=== PATIENT | male | born 1990 | race African-American/Black ===

== ENCOUNTER 2016-08-31 20:28 | Emergency (ER) | payer OTHER ==
[~2016-08-31 20:28] MED LIST: *UNABLE3; ALEVE220 MG PO; ASA5GR PO; CHOLESTEROL TAB; DSS PO; LIPITOR80 MG PO; NICOTINE PATCH TOP; NORV5 PO; P20 PO; PRIN10 PO
[2016-08-31 20:56] LABS: BASOPHILS 0.4 %; BASOPHILS ABSOLUTE 0.05 10/3/uL (0.0-0.16); EOSINOPHILS 1.9 %; EOSINOPHILS ABSOLUTE 0.24 10/3/uL (0.0-0.53); HEMATOCRIT 41.5 % (40.0-51.0); HEMOGLOBIN 15.1 g/dL (13.6-17.8); IMMATURE GRANULOCYTES 0.2 %; IMMATURE GRANULOCYTES ABSOLUTE 0.03 10/3/uL (0.0-0.11); LYMPHOCYTES 34.3 %; LYMPHOCYTES ABSOLUTE 4.22 10/3/uL (0.67-4.30); MEAN CORPUS HGB CONC 36.4 g/dL (32.0-36.0); MEAN CORPUSCULAR HEMOGLOB 28.1 pg (26.0-34.0); MEAN CORPUSCULAR VOLUME 77.3 fL (80-100); MEAN PLATELET VOLUME 9.8 fL (9.2-13.0); MONOCYTES ABSOLUTE 1.36 10/3/uL (0.21-1.20); NEUTROPHILS 52.2 %; NEUTROPHILS ABSOLUTE 6.42 10/3/uL (2.02-8.40); PLATELET COUNT 256 10/3/uL (150-400); RED CELL COUNT 5.37 10/6/uL (4.7-6.1)
[2016-08-31 20:58] LABS: ER CBC TAT 0 Hrs 07 Mins; MANUAL DIFF NO %; WHITE BLOOD CELLS 12.3 10/3/uL (4.5-10.5)
[2016-08-31 21:03] LABS: INTERNATIONAL NORMAL RATI 1.1 UNITS (-); PARTIAL THROMBO TIME 25.8 SEC (22.5-37.2); PROTIME (NOT ORD) 13.7 SEC (12.0-14.5)
[2016-08-31 21:18] LABS: BUN (BLOOD UREA NITROGEN) 8 MG/DL (6-23); CHEST PAIN PROFILE TAT 0 Hrs 27 Mins; CHLORIDE, SERUM 107 MMOL/L (96-112); CO2 (CARBON DIOXIDE) 30 MMOL/L (24-34); CREATININE 1.02 MG/DL (0.70-1.30); GFR AFRICAN AMERICAN 115 ML/MIN (>=60); GFR NON AFRICAN AMERICAN 100 ML/MIN (>=60); GLUCOSE, SERUM 89 MG/DL (60-99); SODIUM, SERUM 144 MMOL/L (135-148); TROPONIN I <0.02 NG/ML (<0.05)
== END 2016-08-31 22:05 | disposition home or self-care (01) ==
LOC: ER 20:28
PROVIDERS: Nurse Practitioner
DX: M25.552 Pain in left hip (principal); I10 Essential (primary) hypertension; Z86.73 Personal history of transient ischemic attack (TIA), and cerebral infarction without residual deficits; F17.200 Nicotine dependence, unspecified, uncomplicated; Z79.82 Long term (current) use of aspirin; Z79.899 Other long term (current) drug therapy
CPT/HCPCS: 71020; 72170; 73502-LT; 80048; 83735; 84484; 85025; 85610; 85730; 93005; 99284; A9270-GY

== ENCOUNTER 2017-01-08 19:39 | Inpatient (IN) | payer OTHER ==
--- NOTE | ~2017-01-08 | CN ---
Consultation Report [address] [place]. [address] NAME: KIRSTEN TONG : 86 STATUS : ADM Tor PAT#: [id number] AGE: 26 ADM/REG DATE : 01/08/17 MR#: [id number] REPORT SERV DATE: 01/11/17 DICTATED BY: SHIRLEY MATHUR DATE: 01/11/17 REPORT STATUS : Draft TRANSCRIBED BY: MODL DATE: 01/11/17 NEUROLOGY CONSULTATION DATE OF CONSULTATION: 01/11/2017 REASON FOR CONSULTATION: Acute stroke and history of MS. PCP: None. HOSPITALIST: Dr. Ike Mcpherson and Luis Alegre, nurse practitioner. HISTORY OF PRESENT ILLNESS: The patient is a 26-year-old male who over the last few days has had a sudden onset of slurred speech and mild expressive aphasia. Upon further questioning, he has also been incontinent of urine and has had extreme fatigue. The patient stated that he did not want to come into the hospital right away thinking that these symptoms would resolve. They did not resolve, so he came to the hospital for further evaluation and treatment. The patient has had stroke before in the past and also has history of polysubstance abuse. He also has a history of demyelinating disease. States that he was diagnosed with multiple sclerosis two years ago. He does not follow up with a neurologist on an outpatient basis nor has he been placed on immunosuppressant therapy. When questioned more extensively, the patient mentions that he does use recreational drugs. He smokes marijuana on a daily basis and used Ecstasy last week. He denies the use of cocaine or crack. PAST MEDICAL HISTORY: Reported multiple sclerosis, polysubstance abuse, stroke, morbid obesity, hypertension, patent foramina ovale, tobacco abuse, and osteomyelitis of the right index finger. PAST SURGICAL HISTORY: Right index finger amputation. HOME MEDICATIONS: None. ALLERGIES: NONE. SOCIAL HISTORY: The patient is single. He lives alone. He has three children. He does not work. He is a smoker. He uses marijuana on a daily basis. He has some recreational drugs and denies the use of alcohol. FAMILY HISTORY: The patient's mother is alive. She is 40, has no health issues. His father is 43 and is in jail. He has two sisters and three brothers, who are in relatively good Consultation Report [facility] [address] [place]. [address] NAME: KIRSTEN TONG : 86 STATUS : ADM Tor PAT#: [id number] AGE: 26 ADM/REG DATE : 01/08/17 MR#: [id number] REPORT SERV DATE: 01/11/17 DICTATED BY: SHIRLEY MATHUR DATE: 01/11/17 REPORT STATUS : Draft TRANSCRIBED BY: MODL DATE: 01/11/17 health. REVIEW OF SYSTEMS: Please refer to HPI for pertinent positives. PHYSICAL EXAMINATION: GENERAL: The patient is a 26-year-old male who stands 6 feet 4 inches tall and weighs 261 pounds. VITAL SIGNS: He is afebrile. Heart rate 80, respiratory rate 20, O2 saturations on room air 97%, blood pressure 170/103. NEURO: The patient is alert. He is oriented x4. Communicates appropriately, although he is slightly dysarthric. He does have mild expressive aphasia. Pupils are 3 mm, PERRLA. Vision via confrontation is full in both arambula. The patient does have significant facial droop on the right along with right tongue deviation and slight ptosis on the right. He does not report diminished sensation on the face. He can move all extremities x4. He does have a pronator drift on the right. Mwveki-lb-fzcl reveals ataxia bilaterally, more prominent on the left than the right. The patient does have weakness in the right arm which is 3/5 compared to the left arm which is 5/5. Upper DTRs are 1+ on the right, 2+ on the left. No reported sensory deficits. Lower extremity strength is 4/5 on the right and 5/5 on the left. Patellar reflexes 2+ bilaterally. Downgoing toes. No reported sensory deficits. The patient can get out of the bed with some difficulty. He is ataxic. Circumduction noted with the right hip. Unable to tandem. Romberg is positive. NECK: No carotid bruits, JVD, or thyromegaly. CHEST: Lung sounds are clear. CARDIAC: Regular rate and rhythm. LABORATORY: CTA of the chest is negative for PE. MRA of the head and neck negative for stenosis or acute abnormalities. MRI of the brain, acute ischemic infarct in the left occipital lobe and anterior adeline. There are multiple demyelinating plaques. CBC: White count is 12.8. BMP is normal. NIH stroke scale is a total of 7. ASSESSMENT/PLAN: 1. Probable acute stroke, however, the lesion in the adeline is suspicious looking, therefore the patient will undergo an MRI of the brain and C-spine with gadolinium. He will also have an LP under fluoroscopy per Interventional Radiology tomorrow morning. His Lovenox will be held. Additional lab work will be drawn. Cardiology will be consulted for possible transesophageal echocardiogram. PT, OT, and Speech Therapy will be consulted, and Case Management will be consulted for rehab. His aspirin and Lipitor will be continued and after his lumbar puncture, he will be started on anticoagulation (Coumadin versus NOAC). 2. Demyelinating disease, most likely multiple sclerosis. The patient will see a neurologist on an outpatient basis for immunomodulatory therapy and followup. 3. Leukocytosis, etiology unknown. Lab work will be drawn, and the patient will be followed per hospitalist team. Consultation Report [address] [address] NAME: KIRSTEN TONG : 88 STATUS : ADM Tor PAT#: [id number] AGE: 26 ADM/REG DATE : 01/08/17 MR#: [id number] REPORT SERV DATE: 01/11/17 DICTATED BY: SHIRLEY MATHUR DATE: 01/11/17 REPORT STATUS : Draft TRANSCRIBED BY: BREEZY DATE: 01/11/17 Thank you again for including us in consultation. We will follow with you. KARSON/BREEZY Shirley Mathur DNP, [facility] / [id number] CC: Dusty Vasquez APN
--- NOTE | ~2017-01-08 | HP ---
History And Physical [place] [id number] [facility] [place]. [address] NAME: KIRSTEN TONG : 86 STATUS : ADM Tor PAT#: [id number] AGE: 26 ADM/REG DATE : 01/08/17 MR#: [id number] REPORT SERV DATE: 01/09/17 DICTATED BY: PRABHA NESS DATE: 01/08/17 REPORT STATUS : Draft TRANSCRIBED BY: MODHaim DATE: 01/08/17 DATE OF ADMISSION: 01/08/2017 POINT OF ENTRY: [facility] Emergency Department PRIMARY CARE PHYSICIAN: None at this time. NEUROLOGIST: None at this time. CHIEF COMPLAINT: Slurred speech. HISTORY OF PRESENT ILLNESS: Mr. Tong is a 26-year-old gentleman with a history of prior cerebrovascular accident with history of left-sided hemiparesis as well as evidence of multiple demyelinating plaques concerning for multiple sclerosis as well as polysubstance abuse who presents here today with a two-day history of slurred speech. The patient had an extensive hospitalization in the late 2013 or early 2014 for concerns for stroke-like symptoms. The patient saw both Neurology as well as Infectious Diseases. An MRI with and without contrast totally showed extensive burden of demyelinating plaques in both cerebral hemispheres concerning for possible multiple sclerosis. The patient was discharged on a prednisone taper as well as medications for his high blood pressure. The patient denies any other recent hospitalization since discharge from our facility in August 2014. The patient states for the last two days he has had slurred speech. He denies any headache, vision changes, dysphagia, weakness, numbness, or tingling. He is unable to tell me exactly why it took him so long to be seen by the medical professional. He currently denies any use of medications for his multiple sclerosis or demyelinating plaques. Initial evaluation in the emergency department notable for a CT scan of the brain that shows improved burden of demyelinating white matter plaques. EKG was nonischemic. Labs unremarkable. Urine drug screen was positive for amphetamines and cannabinoids. The patient was noted to be leaving the ER multiple times to go outside and smoke. He has since been warned that if this does happens again either here in the ER or on the floor, he will be discharged. REVIEW OF SYSTEMS: Comprehensive review of systems, otherwise negative unless listed in history of present illness. PAST MEDICAL HISTORY: 1. Demyelinating disease, concerning for multiple sclerosis. 2. Polysubstance abuse. 3. History of cerebrovascular accident with left-sided hemiparesis. 4. Morbid obesity. History And Physical [address] [address] NAME: KIRSTEN TONG : 86 STATUS : ADM Tor PAT#: [id number] AGE: 26 ADM/REG DATE : 01/08/17 MR#: [id number] REPORT SERV DATE: 01/09/17 DICTATED BY: PRABHA NESS DATE: 01/08/17 REPORT STATUS : Draft TRANSCRIBED BY: BREEZY DATE: 01/08/17 5. Hypertension. 6. History of right index finger osteomyelitis, status post surgery. 7. Reported history of PFO. SURGICAL HISTORY: Right finger distal resection for osteomyelitis. ALLERGIES: NO KNOWN DRUG ALLERGIES. HOME MEDICATIONS: None. SOCIAL HISTORY: Smokes about two packs per day. Denies any alcohol. Endorses some marijuana use. Nothing else. FAMILY HISTORY: Family medical history of hypertension, asthma. LABS AND IMAGIN. White count is 11.3, hemoglobin is 15.5 hematocrit is 42.7, platelets 242. INR 1.1. 2. Sodium is 142, potassium 3.8, chloride 106, carbon dioxide 34, BUN 10, creatinine 0.98, glucose is 64, calcium is 9.3. Protein is 7.1, albumin is 3.9, bilirubin is 0.4, ALT is 20, AST is 13, alkaline phosphatase is 80. 3. Troponin less than 0.02. 4. Alcohol level is negative. Urine drug screen positive for amphetamines and cannabinoids. 5. EKG per my review shows a normal sinus rhythm with some occasional PVCs and some borderline LVH type changes. No evidence of any acute ischemic infarction. 6. Chest x-ray per review shows no acute cardiopulmonary abnormality. 7. CT scan of the brain showed a decreased burn in the deep white matter plaques as well as a stable, but extensive bilateral demyelinating plaques. PHYSICAL EXAMINATION: VITAL SIGNS: Temperature is 98.4 degrees Fahrenheit, pulse is 79, respirations 20, saturating 98% on room air, blood pressure 160/95. GENERAL: The patient is awake, alert, in no acute distress, resting comfortably in a bed. He is a well-developed, well-nourished, male. HEENT: Atraumatic and normocephalic. Moist mucous membranes. Pupils are equal, round, and reactive to light and accommodation. Extraocular eye movements intact. No scleral icterus. NECK: No jugular venous distention. No carotid bruits. CARDIAC: Regular rate and rhythm. No murmurs, rubs, or gallops. Normal S1, S2. LUNGS: Clear to auscultation bilaterally. No wheezes, rhonchi, or crackles. ABDOMEN: Soft, nontender, nondistended with good bowel sounds. No rebound, guarding, or rigidity. EXTREMITIES: Warm and perfused. No cyanosis, clubbing, or edema. SKIN: Warm and dry. PSYCH: Affect is appropriate. NEURO: Alert and oriented x3. Cranial nerves II through XII are grossly intact. Speech is somewhat dysarthric, but I have no baseline for comparison. Gait is somewhat antalgic, but intact. Strength is 5/5 in bilateral upper and lower extremities. Cerebellar function is History And Physical [address] [address] NAME: KIRSTEN TONG : 86 STATUS : ADM Tor PAT#: [id number] AGE: 26 ADM/REG DATE : 01/08/17 MR#: [id number] REPORT SERV DATE: 01/09/17 DICTATED BY: PRABHA NESS DATE: 01/08/17 REPORT STATUS : Draft TRANSCRIBED BY: BREEZY DATE: 01/08/17 also intact. ASSESSMENT AND PLAN: Mr. Tong 26-year-old gentleman with a history of prior cerebrovascular accident as well as a known history of demyelinating disease concerning for multiple sclerosis who presents with a two-day history of slurred speech concerning for possible acute cerebrovascular accident versus sequela of his demyelinating disease versus possible effects of polysubstance abuse. Problem list: 1. Dysarthria. Concerning for possible cerebrovascular accident versus alternative etiology. 2. Demyelinating disease. 3. Polysubstance abuse. 4. Active tobacco abuse. 5. Hypertension. PLAN: 1. Dysarthria, concerning for possible cerebrovascular accident. We will admit the patient to Hospitalist Service. Consult Neurology for assistance. Check MRI stroke protocol. Place him on aspirin as well as a statin. 2. Demyelinating disease. It is unclear as to whether or not the patient's symptoms may represent sequela of demyelinating disease. ER physician called Neurology and spoke with Dr. Walker, and he recommended holding off on steroids given the patient's history of polysubstance abuse as well as unclear history at this time. 3. Polysubstance abuse. The patient currently admits to use of marijuana, but denies anything else. His urine drug screen is positive for amphetamines. Previously, he did test positive for cocaine as well as admit to other medical providers during his previous admission that he also smokes cigarettes dipped in embalming fluid. 4. Hypertension. IV hydralazine p.r.n. for elevated blood pressure. 5. Active tobacco use. Counseling of tobacco cessation. The patient was instructed not to leave the floor again to smoke and nicotine replacement protocol. 6. Deep venous thrombosis prophylaxis. Lovenox subcu. CODE STATUS: The patient wishes to be full code. JCB/MODL Prabha Ness MD / [id number] CC: Vincent Chavez M.D.
--- NOTE | ~2017-01-08 | PUL ---
[facility] [address] [facility] [place]. [address] NAME: KIRSTEN TONG : 86 STATUS : ADM Tor PAT#: [id number] AGE: 26 ADM/REG DATE : 01/08/17 MR#: [id number] REPORT SERV DATE: 01/12/17 DICTATED BY: LEWIS MONK IV DATE: 01/12/17 REPORT STATUS : Draft TRANSCRIBED BY: MODL DATE: 01/12/17 PULMONARY FUNCTION TEST OVERNIGHT OXIMETRY FINDINGS: Study is performed on room air. Five hours and 27 minutes of data are available for review. The mean oxygen saturation was 97.3%. Lowest scored saturation was 85%. There were periods of oxygen saturation variation of sawtooth pattern, though these were relatively isolated events and may be secondary to motion artifact. It was during these episodes where the patient had the significant desaturations. The patient spent 12 seconds with oxygen saturations less than 88%. IMPRESSION: No significant nocturnal hypoxemia on room air. I see no clear pattern consistent with obstructive sleep apnea despite a recorded desaturation index of 10 per hour. MICHAEL/BREEZY Lewis Monk IV, M.D. / [id number] CC: Ike Mcpherson M.D. NO PCP
--- NOTE | ~2017-01-08 | DS ---
Discharge Summary [facility] [address] [place]. [address] NAME: KIRSTEN TONG : 86 STATUS : DIS IN PAT#: [id number] AGE: 26 ADM/REG DATE : 01/08/17 MR#: [id number] REPORT SERV DATE: 01/16/17 DICTATED BY: MORGAN SARGENT DATE: 01/15/17 REPORT STATUS : Draft TRANSCRIBED BY: MODL DATE: 01/15/17 ADMISSION DATE: 01/08/2017 DISCHARGE DATE: 01/14/2017 REASON FOR ADMISSION: This is a 26-year-old male with a prior history of suspected cerebrovascular accident and left hemiparesis with multiple sclerosis, who came in with a chief complaint of slurred speech. DISCHARGE DIAGNOSES: 1. Multiple sclerosis exacerbation. 2. Possible viral meningitis. 3. Leukocytosis. 4. Polysubstance drug abuse with UDS positive for amphetamines and cannabinoids. 5. History of multiple sexually transmitted diseases. 6. Tobacco abuse. 7. Hypertension. HOSPITAL COURSE: 1. MS exacerbation. The patient admitted and had a CT scan in the emergency room, which would show apparent decreased deep white matter demyelinating plaque burden right superior frontal lobe compared to cranial CT in November 2014. He would then have a followup MRI, which would show acute ischemic infarct left occipital lobe inferior adeline and extensive deep white matter demyelinating disease, with slightly enlarging confluent demyelinating plaque in the right parietal lobe. Neuro was consulted after this finding. They would then order an MRA of head and neck, which would show unremarkable intracranial MRA. MRA of the neck would be unremarkable as well. MRI of cervical spine would show evidence for demyelinating plaques at several levels in the vertebral body including C2 and C3 lesions consistent with MS. MRI of brain with contrast would show acute process in midbrain. Given presentation suggests fairly aggressive MS in the past and findings likely all related to MS. The patient would have a spinal tap and did have oligoclonal banding. Extensive workup for viral meningitis was performed. VDRL-CSF was nonreactive. HIV was nonreactive. Hepatitis was nonreactive. HSV-1 and 2 not detected and RPR also negative. The patient complained of penile drainage, but chlamydia and gonorrhea not detected. The patient did have serum leukocytosis during his stay with white blood cell count ranging from 11.7 to 13.3 during stay, it was 12.0 before discharge. His procalcitonin was negative, with it being less than 0.05 and he did not run any fevers while here at the hospital. His speech issues which he came in with did improve during hospital stay. He also had some generalized weakness, which also improved. The patient when diagnosed with MS two years ago did not follow up with Neuro and had never been started on disease modifying medication. Neuro during this stay felt like they did not want to start the patient on steroids because the patient was functional, and with possible viral meningitis, did not want to start steroids. 2. Hypertension. The patient did have elevated blood pressures during his stay. He was started on hydrochlorothiazide and lisinopril and will be discharged on Norvasc and lisinopril. Discharge Summary [address] [address] NAME: KIRSTEN TONG : 86 STATUS : DIS IN PAT#: [id number] AGE: 26 ADM/REG DATE : 01/08/17 MR#: [id number] REPORT SERV DATE: 01/16/17 DICTATED BY: MORGAN SARGENT DATE: 01/15/17 REPORT STATUS : Draft TRANSCRIBED BY: BREEZY DATE: 01/15/17 DISCHARGE CONDITION: Stable. DISCHARGE MEDICATIONS: 1. Norvasc 5 mg p.o. daily. 2. Lisinopril 20 mg p.o. daily. 3. Vitamin D 50,000 units p.o. weekly. DISCHARGE PLAN: The patient does have [facility]. He wishes to establish a new primary care physician, so he was given information on how to do that. Also, he was to follow up with Neuro, was unable to secure an appointment sooner than June, so he will likely need to be referred to another Neuro Office to get seen sooner to get started on disease modifying medication. The working diagnosis here is that he had an MS exacerbation brought on by viral meningitis. He should follow up with primary care in the next one to two weeks. If he is unable to secure a primary care visit soon and/or Neuro and has worsening symptoms, he was advised to come back into the emergency room. DICTATED BY: LARRY Bryant/BREEZY Morgan Sargent APN / [id number] CC: Dusty Vasquez, [facility]-
[2017-01-08 16:53] LABS: BASOPHILS 0.6 %; BASOPHILS ABSOLUTE 0.07 10/3/uL (0.0-0.16); EOSINOPHILS 1.6 %; EOSINOPHILS ABSOLUTE 0.18 10/3/uL (0.0-0.53); ER CBC TAT 0 Hrs 08 Mins; HEMATOCRIT 42.7 % (40.0-51.0); HEMOGLOBIN 15.5 g/dL (13.6-17.8); IMMATURE GRANULOCYTES 0.2 %; IMMATURE GRANULOCYTES ABSOLUTE 0.02 10/3/uL (0.0-0.11); LYMPHOCYTES 29.5 %; LYMPHOCYTES ABSOLUTE 3.34 10/3/uL (0.67-4.30); MEAN CORPUS HGB CONC 36.3 g/dL (32.0-36.0); MEAN CORPUSCULAR HEMOGLOB 28.2 pg (26.0-34.0); MEAN CORPUSCULAR VOLUME 77.8 fL (80-100); MONOCYTES ABSOLUTE 1.13 10/3/uL (0.21-1.20); NEUTROPHILS 58.1 %; PLATELET COUNT 242 10/3/uL (150-400); RBC DISTRIBUTION WIDTH 14.7 % (12.0-16.0); RED CELL COUNT 5.49 10/6/uL (4.7-6.1); WHITE BLOOD CELLS 11.3 10/3/uL (4.5-10.5)
[2017-01-08 16:54] LABS: MANUAL DIFF NO %
[2017-01-08 17:00] LABS: INTERNATIONAL NORMAL RATI 1.1 UNITS (-); PARTIAL THROMBO TIME 27.4 SEC (22.5-37.2)
[2017-01-08 17:11] LABS: A/G RATIO 1.2 (0.7-1.9); ALBUMIN 3.9 G/DL (3.5-5.0); ALKALINE PHOSPHATASE 80 U/L (45-117); BUN (BLOOD UREA NITROGEN) 10 MG/DL (6-23); CALCIUM, SERUM 9.3 MG/DL (8.5-10.4); CHLORIDE, SERUM 106 MMOL/L (96-112); CO2 (CARBON DIOXIDE) 34 MMOL/L (24-34); CREATININE 0.98 MG/DL (0.70-1.30); GFR AFRICAN AMERICAN 121 ML/MIN (>=60); GFR NON AFRICAN AMERICAN 105 ML/MIN (>=60); GLOBULIN 3.2 G/DL (2.5-4.1); GLUCOSE, SERUM 64 MG/DL (60-99); POTASSIUM, SERUM 3.8 MMOL/L (3.5-5.3); SGOT(AST) 13 U/L (5-40); SGPT(ALT) 20 U/L (5-65); SODIUM, SERUM 142 MMOL/L (135-148); TOTAL BILIRUBIN 0.4 MG/DL (0-1.2); TOTAL PROTEIN 7.1 G/DL (6.0-8.5); TROPONIN I <0.02 NG/ML (<0.05)
[2017-01-08 20:48] LABS: ALCOHOL < 10 MG/DL (0)
[2017-01-08 22:37] LABS: AMPHETAMINES (NOT ORD) POS (NEG); BARBITURATES (NOT ORDERED NEG (NEG); BENZODIAZEPINES (NOT ORD) NEG (NEG); CANNABINOIDS (THC) POS (NEG); COCAINE (NOT ORDERED) NEG (NEG); OPIATES NEG (NEG); PHENCYCLIDINE(PCP) NEG (NEG); TRICYCLICS NEG (NEG)
[2017-01-09 01:37] LABS: ASCORBIC ACID (UR NOT ORDER) NEG (NEG); BILIRUBIN, URINE NEGATIVE (NEG); KETONE, URINE NEGATIVE (NEG); LEUKOCYTE ESTERASE(NOT OR NEG (NEG); WBC (NOT ORDERED) (RFLEX) < 1 (0-5)
[2017-01-09 02:19] LABS: CHOL/HDL RATIO(NOT ORDER) 1.9 (0-5); CHOLESTEROL 97 MG/DL (< 200); CPK (IF ELEVATED MB BANDS) 210 U/L (0-200); FOLATE 8.4 NG/ML (>5.2); FREE T4 1.18 NG/DL (0.76-1.46); HDL CHOLESTEROL 52 MG/DL (> 39); LDL CHOLESTEROL 34 MG/DL (< 130); NON-HDL CHOLESTEROL 45 MG/DL (< 160); TRIGLYCERIDE 57 MG/DL (< 150); TROPONIN I <0.02 NG/ML (<0.05)
[2017-01-09 02:32] LABS: CK-MB 1.2 NG/ML
[2017-01-09 09:37] LABS: CPK (IF ELEVATED MB BANDS) 166 U/L (0-200); TROPONIN I <0.02 NG/ML (<0.05)
[2017-01-10 21:55] LABS: BASOPHILS 0.4 %; BASOPHILS ABSOLUTE 0.05 10/3/uL (0.0-0.16); EOSINOPHILS 0.4 %; EOSINOPHILS ABSOLUTE 0.05 10/3/uL (0.0-0.53); HEMOGLOBIN 17.6 g/dL (13.6-17.8); IMMATURE GRANULOCYTES 0.3 %; IMMATURE GRANULOCYTES ABSOLUTE 0.03 10/3/uL (0.0-0.11); LYMPHOCYTES 20.3 %; LYMPHOCYTES ABSOLUTE 2.42 10/3/uL (0.67-4.30); MEAN CORPUS HGB CONC 36.1 g/dL (32.0-36.0); MEAN CORPUSCULAR HEMOGLOB 27.9 pg (26.0-34.0); MEAN CORPUSCULAR VOLUME 77.3 fL (80-100); MEAN PLATELET VOLUME 10.5 fL (9.2-13.0); MONOCYTES 6.5 %; MONOCYTES ABSOLUTE 0.78 10/3/uL (0.21-1.20); NEUTROPHILS 72.1 %; NEUTROPHILS ABSOLUTE 8.61 10/3/uL (2.02-8.40); PLATELET COUNT 253 10/3/uL (150-400); RBC DISTRIBUTION WIDTH 14.4 % (12.0-16.0); WHITE BLOOD CELLS 11.9 10/3/uL (4.5-10.5)
[2017-01-10 21:56] LABS: HEMATOCRIT 48.7 % (40.0-51.0); MANUAL DIFF NO %
[2017-01-10 22:09] LABS: BUN (BLOOD UREA NITROGEN) 9 MG/DL (6-23); CALCIUM, SERUM 9.7 MG/DL (8.5-10.4); CHLORIDE, SERUM 104 MMOL/L (96-112); CO2 (CARBON DIOXIDE) 30 MMOL/L (24-34); CREATININE 0.82 MG/DL (0.70-1.30); GFR AFRICAN AMERICAN 139 ML/MIN (>=60); GFR NON AFRICAN AMERICAN 120 ML/MIN (>=60); PHOSPHORUS, SERUM 3.2 MG/DL (2.5-4.5); POTASSIUM, SERUM 3.4 MMOL/L (3.5-5.3); SODIUM, SERUM 140 MMOL/L (135-148); TROPONIN I <0.02 NG/ML (<0.05)
[2017-01-10 22:13] LABS: GLUCOSE, SERUM 80 MG/DL (60-99)
[2017-01-11 13:53] LABS: BASOPHILS 0.5 %; BASOPHILS ABSOLUTE 0.06 10/3/uL (0.0-0.16); EOSINOPHILS 0.6 %; EOSINOPHILS ABSOLUTE 0.08 10/3/uL (0.0-0.53); HEMATOCRIT 47.1 % (40.0-51.0); HEMOGLOBIN 17.2 g/dL (13.6-17.8); IMMATURE GRANULOCYTES 0.4 %; IMMATURE GRANULOCYTES ABSOLUTE 0.05 10/3/uL (0.0-0.11); LYMPHOCYTES ABSOLUTE 2.93 10/3/uL (0.67-4.30); MANUAL DIFF NO %; MEAN CORPUS HGB CONC 36.5 g/dL (32.0-36.0); MEAN CORPUSCULAR HEMOGLOB 28.2 pg (26.0-34.0); MEAN CORPUSCULAR VOLUME 77.1 fL (80-100); MEAN PLATELET VOLUME 9.8 fL (9.2-13.0); MONOCYTES 9.8 %; MONOCYTES ABSOLUTE 1.25 10/3/uL (0.21-1.20); NEUTROPHILS 65.7 %; NEUTROPHILS ABSOLUTE 8.39 10/3/uL (2.02-8.40); PLATELET COUNT 239 10/3/uL (150-400); RBC DISTRIBUTION WIDTH 14.6 % (12.0-16.0); RED CELL COUNT 6.11 10/6/uL (4.7-6.1); WHITE BLOOD CELLS 12.8 10/3/uL (4.5-10.5)
[2017-01-11 14:03] LABS: BUN (BLOOD UREA NITROGEN) 12 MG/DL (6-23); CALCIUM, SERUM 9.6 MG/DL (8.5-10.4); CHLORIDE, SERUM 105 MMOL/L (96-112); CO2 (CARBON DIOXIDE) 29 MMOL/L (24-34); CREATININE 0.99 MG/DL (0.70-1.30); GFR AFRICAN AMERICAN 120 ML/MIN (>=60); GFR NON AFRICAN AMERICAN 103 ML/MIN (>=60); GLUCOSE, SERUM 82 MG/DL (60-99); SODIUM, SERUM 139 MMOL/L (135-148)
[2017-01-11 14:05] LABS: POTASSIUM, SERUM 4.1 MMOL/L (3.5-5.3)
[2017-01-12 05:02] LABS: ASCORBIC ACID (UR NOT ORDER) NEG (NEG); BILIRUBIN, URINE NEGATIVE (NEG); KETONE, URINE TRACE MG/DL (NEG); LEUKOCYTE ESTERASE(NOT OR NEG (NEG); WBC (NOT ORDERED) (RFLEX) < 1 (0-5)
[2017-01-12 08:44] LABS: ALBUMIN 4.3 G/DL (3.5-5.0); ALKALINE PHOSPHATASE 71 U/L (45-117); DIRECT BILIRUBIN 0.2 MG/DL (0.0-0.4); SGOT(AST) 21 U/L (5-40); SGPT(ALT) 21 U/L (5-65); TOTAL PROTEIN 7.6 G/DL (6.0-8.5)
[2017-01-12 08:45] LABS: FOLATE 12.7 NG/ML (>5.2); INDIRECT BILIRUBIN(NOT ORDER) 1.4 MG/DL (0.1-0.9); PROCALCITONIN <0.05 ng/mL (<0.5); TOTAL BILIRUBIN 1.6 MG/DL (0-1.2)
[2017-01-12 10:11] LABS: TOTAL PROTEIN, CSF 60.8 MG/DL (15-45)
[2017-01-12 10:18] LABS: CSF APPEARANCE (NOT ORD) CLEAR (CLEAR); CSF BASO 0 % (NO REF RANGE); CSF COLOR (NOT ORD) COLORLESS (COLORLESS); CSF EOS 0 % (0-1); CSF LYMPH (NOT ORD) 87 % (28-96); CSF MONO 13 % (16-56); CSF SEGS (NOT ORD) 0 % (0-7); CSF XANTHROCHROMIA NEG (NEG)
[2017-01-12 10:19] LABS: CSF WBC (NOT ORD) 55 /uL (0-10)
[2017-01-12 10:21] LABS: CSF RBC (NOT ORD) 1 MM3 (NO REFERENCE)
[2017-01-12 12:04] LABS: BASOPHILS 0.4 %; BASOPHILS ABSOLUTE 0.05 10/3/uL (0.0-0.16); EOSINOPHILS 0.8 %; HEMOGLOBIN 17.1 g/dL (13.6-17.8); IMMATURE GRANULOCYTES 0.3 %; IMMATURE GRANULOCYTES ABSOLUTE 0.04 10/3/uL (0.0-0.11); LYMPHOCYTES 19.3 %; LYMPHOCYTES ABSOLUTE 2.45 10/3/uL (0.67-4.30); MEAN CORPUSCULAR HEMOGLOB 28.5 pg (26.0-34.0); MEAN PLATELET VOLUME 9.9 fL (9.2-13.0); MONOCYTES 9.6 %; MONOCYTES ABSOLUTE 1.22 10/3/uL (0.21-1.20); NEUTROPHILS 69.6 %; NEUTROPHILS ABSOLUTE 8.84 10/3/uL (2.02-8.40); PLATELET COUNT 239 10/3/uL (150-400); RBC DISTRIBUTION WIDTH 14.5 % (12.0-16.0); WHITE BLOOD CELLS 12.7 10/3/uL (4.5-10.5)
[2017-01-12 12:08] LABS: HEMATOCRIT 49.8 % (40.0-51.0); MANUAL DIFF NO %
[2017-01-12 12:21] LABS: ALBUMIN 4.3 G/DL (3.5-5.0); DIRECT BILIRUBIN 0.2 MG/DL (0.0-0.4); INDIRECT BILIRUBIN(NOT ORDER) 0.7 MG/DL (0.1-0.9); TOTAL PROTEIN 7.8 G/DL (6.0-8.5)
[2017-01-12 12:22] LABS: TOTAL BILIRUBIN 0.9 MG/DL (0-1.2)
[2017-01-13 06:09] LABS: BASOPHILS 0.5 %; BASOPHILS ABSOLUTE 0.07 10/3/uL (0.0-0.16); EOSINOPHILS 1.4 %; EOSINOPHILS ABSOLUTE 0.19 10/3/uL (0.0-0.53); HEMATOCRIT 47.2 % (40.0-51.0); HEMOGLOBIN 17.2 g/dL (13.6-17.8); IMMATURE GRANULOCYTES 0.3 %; IMMATURE GRANULOCYTES ABSOLUTE 0.04 10/3/uL (0.0-0.11); LYMPHOCYTES 30.1 %; MEAN CORPUS HGB CONC 36.4 g/dL (32.0-36.0); MEAN CORPUSCULAR HEMOGLOB 28.6 pg (26.0-34.0); MEAN CORPUSCULAR VOLUME 78.5 fL (80-100); MEAN PLATELET VOLUME 10.3 fL (9.2-13.0); MONOCYTES 10.3 %; MONOCYTES ABSOLUTE 1.37 10/3/uL (0.21-1.20); NEUTROPHILS 57.4 %; NEUTROPHILS ABSOLUTE 7.61 10/3/uL (2.02-8.40); PLATELET COUNT 243 10/3/uL (150-400); RBC DISTRIBUTION WIDTH 14.4 % (12.0-16.0); RED CELL COUNT 6.01 10/6/uL (4.7-6.1); WHITE BLOOD CELLS 13.3 10/3/uL (4.5-10.5)
[2017-01-13 06:10] LABS: MANUAL DIFF NO %
[2017-01-13 06:19] LABS: CALCIUM, SERUM 9.5 MG/DL (8.5-10.4); CHLORIDE, SERUM 102 MMOL/L (96-112); CO2 (CARBON DIOXIDE) 29 MMOL/L (24-34); GFR AFRICAN AMERICAN 118 ML/MIN (>=60); GFR NON AFRICAN AMERICAN 102 ML/MIN (>=60); GLUCOSE, SERUM 92 MG/DL (60-99); POTASSIUM, SERUM 3.9 MMOL/L (3.5-5.3); SODIUM, SERUM 137 MMOL/L (135-148)
[2017-01-13 06:20] LABS: BUN (BLOOD UREA NITROGEN) 22 MG/DL (6-23)
[2017-01-13 12:29] LABS: HEPATITIS B SURFACE ANTIGEN NON-REACTIVE (NON-REACT)
[2017-01-13 12:57] LABS: PROCALCITONIN <0.05 ng/mL (<0.5)
[2017-01-13 12:57] LABS: HEPATITIS B CORE AB IGM NON-REACTIVE (NON-REAC); HEPATITIS C ANTIBODY NON-REACTIVE (NON-REACT)
[2017-01-13 12:59] LABS: HEP A ANTIBODY IGM NON-REACTIVE (NON-REACT)
[2017-01-13 18:36] LABS: ANGIOTENSIN-CONVERTING ENZYME <10 U/L (4-60)
[2017-01-14 07:01] LABS: BASOPHILS 0.3 %; BASOPHILS ABSOLUTE 0.04 10/3/uL (0.0-0.16); EOSINOPHILS 1.3 %; EOSINOPHILS ABSOLUTE 0.16 10/3/uL (0.0-0.53); HEMATOCRIT 47.1 % (40.0-51.0); HEMOGLOBIN 17.2 g/dL (13.6-17.8); IMMATURE GRANULOCYTES 0.3 %; IMMATURE GRANULOCYTES ABSOLUTE 0.03 10/3/uL (0.0-0.11); LYMPHOCYTES 30.6 %; LYMPHOCYTES ABSOLUTE 3.67 10/3/uL (0.67-4.30); MEAN CORPUS HGB CONC 36.5 g/dL (32.0-36.0); MEAN CORPUSCULAR HEMOGLOB 28.8 pg (26.0-34.0); MEAN CORPUSCULAR VOLUME 78.9 fL (80-100); MONOCYTES 10.8 %; MONOCYTES ABSOLUTE 1.29 10/3/uL (0.21-1.20); NEUTROPHILS 56.7 %; NEUTROPHILS ABSOLUTE 6.81 10/3/uL (2.02-8.40); PLATELET COUNT 225 10/3/uL (150-400); RBC DISTRIBUTION WIDTH 14.4 % (12.0-16.0); RED CELL COUNT 5.97 10/6/uL (4.7-6.1)
[2017-01-14 07:06] LABS: MANUAL DIFF NO %
[2017-01-14 07:16] LABS: CALCIUM, SERUM 9.5 MG/DL (8.5-10.4); CHLORIDE, SERUM 104 MMOL/L (96-112); CO2 (CARBON DIOXIDE) 33 MMOL/L (24-34); GFR AFRICAN AMERICAN 58 ML/MIN (>=60); GFR NON AFRICAN AMERICAN 50 ML/MIN (>=60); GLUCOSE, SERUM 103 MG/DL (60-99); POTASSIUM, SERUM 4.1 MMOL/L (3.5-5.3); SODIUM, SERUM 142 MMOL/L (135-148)
[2017-01-14 07:23] LABS: BUN (BLOOD UREA NITROGEN) 28 MG/DL (6-23)
[2017-01-14 13:45] LABS: CHLAMYDIA TRACH PCR NOT DETECTED (NOT DETEC); GC PCR NOT DETECTED (NOT DETECT); SOURCE: MALE URINE
[2017-01-14 14:12] LABS: HSV DNA TYPE 1 Not Detected (NOTDET); HSV DNA TYPE 2 Not Detected (NOTDET)
[2017-01-14] MEDS ORDERED: NORV5 PO (17:28)
[2017-01-14] MEDS ORDERED: ZESTRIL20 MG PO (17:33)
[2017-01-14] MEDS ORDERED: VITD PO (17:34)
[2017-01-15 10:07] LABS: ALBUMIN INDEX 7.7 ratio (0.0-9.0); CSF IGG SYNTHESIS RATE 26.4 mg/d (0.0-8.0); CSF IGG/ALBUMIN RATIO 0.31 ratio (0.09-0.25); CSF OLIGOCLONAL BANDS Positive (NEG); CSF OLIGOCLONAL BANDS NUMBER 12 Bands (0-1); IGG INDEX 1.05 ratio (0.28-0.66); IMMUNOGLOBULIN G, SERUM 1340 mg/dL (768-1632)
[2017-01-15 17:17] LABS: CMV DNA PCR QUAL Not Detected (NOTDET); CMV SOURCE Plasma (())
[2017-01-16 01:10] LABS: M.TB COMP PCR NON RESP NOT DETECTED (NOTDET); SPECIMEN SOURCE Urine (())
[2017-01-17 16:43] LABS: EPSTEIN BARR VIRUS RESULT Not Detected (NOTDET); SPECIMEN SOURCE Plasma (())
== END 2017-01-14 17:45 | disposition home or self-care (01) | DRG 75 ==
LOC: ER 19:39 → CDU1 23:46 → 1SO 01-11 16:15
PROVIDERS: Emergency Medicine; Hospitalist; Internal Medicine; Nurse Practitioner; Nurse Practitioner Gerontology
PROC: 009U3ZZ Drainage of Spinal Canal, Percutaneous Approach (ICD-10-PCS; principal; 2017-01-12)
PROC: B01B1ZZ Fluoroscopy of Spinal Cord using Low Osmolar Contrast (ICD-10-PCS; 2017-01-12)
DX: A87.9 Viral meningitis, unspecified (principal); I69.354 Hemiplegia and hemiparesis following cerebral infarction affecting left non-dominant side; Q21.1 Atrial septal defect; R47.01 Aphasia; I10 Essential (primary) hypertension; G35 Multiple sclerosis; E66.9 Obesity, unspecified; R36.9 Urethral discharge, unspecified; Z68.31 Body mass index [BMI] 31.0-31.9, adult; R32 Unspecified urinary incontinence; F15.10 Other stimulant abuse, uncomplicated; F17.210 Nicotine dependence, cigarettes, uncomplicated; Z91.14 Patient's other noncompliance with medication regimen; Z89.021 Acquired absence of right finger(s); Z87.438 Personal history of other diseases of male genital organs
CPT/HCPCS: 62270; 70450; 70544; 70548; 70551-52; 70553; 71010; 71020; 71275; 72142; 77003; 80048; 80053; 80061; 80074; 80076; 80305; 81001; 82040; 82042; 82140; 82164; 82306; 82533; 82550; 82553; 82607; 82746; 82784; 82784-59; 82945; 83036; 83735; 83916; 84100; 84145; 84157; 84439; 84443; 84484; 85025; 85610; 85730; 86592; 86695; 86696; 86784; 87015; 87040; 87070; 87102; 87116; 87205; 87210; 87327; 87389; 87491; 87496; 87529; 87529-59; 87556; 87591; 87798; 88112; 89051; 92523-GN; 92610-GN; 93005; 93306; 94762; 97116-GP; 97162-GP; 97165-GO; 99285; A9270-GY; A9577; G0480; J0360; J2405; Q9967